=== PATIENT | female | born 1990 | race African-American/Black ===

== ENCOUNTER 2018-06-12 18:15 | Emergency (ER) | payer MEDICAID ==
[~2018-06-12] VITALS: Ht 162.6 cm; Wt 96.0 kg
[2018-06-12] MEDS ORDERED: IBUPROFEN 600MG TABLET PO STA (22:52)
[2018-06-12 23:12] LABS: CLARITY URINE CLEAR (CLEAR); COLOR URINE YELLOW (YELLOW); KETONES URINE 1+ (NEGATIVE); LEUKOCYTE ESTERASE URINE 1+ (NEGATIVE); NITRITE URINE POSITIVE (NEGATIVE); OCCULT BLOOD URINE 1+ (NEGATIVE); PH URINE 5.5 (4.5-8.0); PROTEIN URINE NEGATIVE (NEGATIVE); SPECIFIC GRAVITY URINE 1.025 (1.005-1.030)
[2018-06-13 00:23] VITALS: BP 125/91
== END 2018-06-13 00:24 | disposition home or self-care (01) ==
LOC: ER 18:55
DX: J39.9 Disease of upper respiratory tract, unspecified (principal); N39.0 Urinary tract infection, site not specified; M54.5 Low back pain; R51 Headache; R09.81 Nasal congestion; H92.03 Otalgia, bilateral; F12.10 Cannabis abuse, uncomplicated; Z98.890 Other specified postprocedural states
CPT/HCPCS: 81025; 87070; 87430; 87804; 99283